=== PATIENT | male | born 1995 | race Caucasian/White ===

== ENCOUNTER 2018-12-04 19:23 | Emergency (ER) | payer OTHER ==
[2018-12-04 19:28] VITALS: BP 144/87
--- NOTE | 2018-12-04 20:02 | XRAY Report ---
Reason: INJURY Procedure Date: 12/04/2018 Accession Number: [id number] / [id number] Procedure: XR - Shoulder 3 View LT CPT Code: FULL RESULT: EXAM: LEFT SHOULDER RADIOGRAPHY EXAM DATE: 12/04/2018 07:37 PM. CLINICAL HISTORY: INJURY. COMPARISON: None. TECHNIQUE: 4 views. FINDINGS: Bones: Inferiorly displaced mid clavicle fracture, with 1.2 cm of inferior displacement. Joints: The glenohumeral and acromioclavicular joints are preserved. Soft tissues: The partially imaged lung is unremarkable. IMPRESSION: Mid clavicle fracture. RADIA
--- NOTE | 2018-12-04 20:56 | ED Physician Documentation ---
PD HPI UPPER EXT INJURY - Stated complaint Stated Complaint: LT SHOULDER PX - Chief complaint Chief Complaint: Ext Problem - History obtained from History obtained from: Patient - History of Present Illness Location: Left (Fell on his left shoulder while snowboarding earlier today. No pain at rest, only hurts with motion. Declines pain medication. He is active duty [employer].) Review of Systems Constitutional: reports: Reviewed and negative Nose: reports: Reviewed and negative Throat: reports: Reviewed and negative PD PAST MEDICAL HISTORY - Past Medical History Past Medical History: No - Past Surgical History Past Surgical History: No - Present Medications Home Medications: Ambulatory Orders Medication Instructions Recorded Confirmed No Known Home Medications 12/04/18 12/04/18 - Allergies Allergies/Adverse Reactions: Allergies Allergy/AdvReac Type Severity Reaction Status Date / Time No Known Drug Allergies Allergy Verified 12/04/18 19:28 - Social History Does the pt smoke?: No Smoking Status: Never smoker Does the pt drink ETOH?: Yes Does the pt have substance abuse?: No - Immunizations Immunizations are current?: Yes - POLST Patient has POLST: No PD ED PE NORMAL - Vitals Vital signs reviewed: Yes - General General: Alert and oriented X 3, No acute distress - Neck Neck: Supple, no meningeal sign, No bony TTP - Extremities Extremities: Other (Tender to the mid clavicle with deformity, limited range of motion of the shoulder. Neurovascular intact in the left upper extremity.) - Neuro Neuro: Alert and oriented X 3, Normal speech Results - Vitals Vitals: Vital Signs - 24 hr 12/04/18 19:25 Temperature 36.8 C Heart Rate 86 Respiratory 18 Rate Blood Pressure 144/87 H O2 Saturation 99 Oxygen O2 Source Room air - Rads (name of study) l SHOULDER Radiology: EMP read contemporaneously PD MEDICAL DECISION MAKING - ED course ED course: 23-year-old gentleman with isolated left mid clavicular fracture. Declined pain medication. Placed in a sling. [place] Departure - Departure Disposition: 01 Home, Self Care Clinical Impression: Fracture of clavicular shaft, left, closed Qualifiers: Encounter type: initial encounter Fracture alignment: displaced Qualified Code(s): S42.022A - Displaced fracture of shaft of left clavicle, initial encounter for closed fracture Condition: Good Record reviewed to determine appropriate education?: Yes Instructions: ED Fx Clavicle Comments: Call the [facility] tomorrow to arrange an appointment with the orthopedic clinic. Take the CD of the x-ray with you. Keep the sling on until then. Forms: Activity restrictions
== END 2018-12-04 21:03 | disposition home or self-care (01) ==
LOC: ED 19:23
DX: S42.022A Displaced fracture of shaft of left clavicle, initial encounter for closed fracture (principal); V00.311A Fall from snowboard, initial encounter; Y93.23 Activity, snow (alpine) (downhill) skiing, snowboarding, sledding, tobogganing and snow tubing
CPT/HCPCS: 99283

== ENCOUNTER 2018-12-09 09:27 | Day surgery (SDC) | payer OTHER ==
[2018-12-09] MEDS ORDERED: cefTRIAXone 2 GM VIAL ONE (09:50)
[2018-12-09] MEDS ORDERED: LACTATED RINGERS 1,000 ML IV ONE ×2 (10:00→14:25)
[2018-12-09] MEDS ORDERED: BUPIVACAINE 0.25%-EPI 1:200000 PF 30 ML VIAL ONE (10:12)
--- NOTE | 2018-12-09 10:51 | ANESTHESIA ---
Pre-Anesthesia VS, & Labs - Diagnosis left clavicle fracture - Procedure Open reduction internal fixation right clavicle Vital Signs: Temp Pulse Resp BP Pulse Ox 36.5 C 67 16 134/79 H 100 12/09/18 09:40 12/09/18 09:40 12/09/18 09:40 12/09/18 09:40 12/09/18 09:40 Height 6 ft Weight (kg) 81.65 kg Body Mass Index 24.4 - NPO >8 hours Home Medications and Allergies No Known Home Medications 12/04/18 Allergies/Adverse Reactions: Allergies Allergy/AdvReac Type Severity Reaction Status Date / Time No Known Drug Allergies Allergy Verified 12/06/18 13:21 Anes History & Medical History - Anesthetic History Anesthesia Complications: reports: No previous complications Family history of Anesthesia Complications: Denies Family history of Malignant Hyperthermia: Denies - Medical History Cardiovascular: reports: None Pulmonary: reports: None Gastrointestinal: reports: None Urinary: reports: None Musculoskeletal: reports: Other Endocrine/Autoimmune: reports: None Skin: reports: None Smoking Status: Never smoker Exam General: Alert Dental: WNL Mouth Opening: Greater than 4 Fingerbreadths Neck Mobility: Normal Mallampati classification: II Thyromental Distance: greater than 6 cm Respiratory: Lungs clear Cardiovascular: Regular rate Plan Anesthesia Type: General Consent for Procedure(s) Verified and Reviewed: Yes Code Status: Attempt Resuscitation ASA classification: 1-Healthy patient Is this case an emergency?: No
[2018-12-09] MEDS ORDERED: CELECOXIB 100 MG CAPSULE PO ONE (11:11)
[2018-12-09] MEDS ORDERED: GABAPENTIN 400 MG CAPSULE ONE (11:11)
[2018-12-09] MEDS ORDERED: ACETAMINOPHEN 1,000 MG/100 ML 100 ML IV ONE (11:11)
[2018-12-09] MEDS ORDERED: ROCURONIUM 50 MG/5 ML VIAL IVP ONE (12:00)
[2018-12-09] MEDS ORDERED: METOCLOPRAMIDE 10 MG/2 ML VIAL IVP ONE (12:00)
[2018-12-09] MEDS ORDERED: fentaNYL 100 MCG/2 ML VIAL IVP ONE (12:00)
[2018-12-09] MEDS ORDERED: raNITIdine INJ 25 MG/ML VIAL IV ONE (12:00)
[2018-12-09] MEDS ORDERED: MIDAZOLAM 2 MG/2 ML VIAL IVP ONE (12:00)
[2018-12-09] MEDS ORDERED: DEXAMETHASONE 4 MG/ML VIAL IVP ONE (12:00)
[2018-12-09] MEDS ORDERED: PROPOFOL 200 MG/20 ML VIAL IVP ONE (12:00)
[2018-12-09] MEDS ORDERED: LIDOCAINE-MPF 2% 5 ML VIAL IM ONE (12:00)
[2018-12-09] MEDS ORDERED: ONDANSETRON 4 MG/2 ML VIAL IVP ONE (12:00)
[2018-12-09] MEDS ORDERED: BUPIVACAINE 0.25%-EPI 1:200000 PF 30 ML VIAL SUBQ ONE ×2 (12:55)
[2018-12-09] MEDS ORDERED: ONDANSETRON 4 MG/2 ML VIAL IVP PRN (14:15)
[2018-12-09] MEDS ORDERED: oxyCODONE 5 MG TABLET PO PRN (14:15)
--- NOTE | 2018-12-09 14:24 | OPERATIVE REPORT ---
Operative Report - Other Other Information/Narrative: Date of Surgery: 09 December 2018 Pre-Op Diagnosis: Left midshaft clavicle fracture Procedure: Open reduction internal fixation left midshaft clavicle fracture Postop Diagnosis: Same Primary Surgeon: Bairon Maravilla Secondary Surgeon: Tenzin Burkett Complications: None EBL: 50 cc Implants: Arthrex superior clavicle plate with 7 screws Postoperative Protocol: Full passive range of motion until 4 weeks. Full active range of motion until 12 weeks. Begin strengthening at that time. X-ray should be obtained at his first postoperative visit, 6 weeks postoperative visit, and 3-month postoperative visit. Indication For Surgery: 23-year-old male sustained a left clavicle fracture when he was snowboarding on 03 November. It was closed and had no neurovascular injury. I discussed with him treatment options to include closed management with the potential for malunion, nonunion, need for further surgery to include malunion takedown and fixation. I quoted him a 15 rate of this complication. I also discussed the risks and benefits of surgery to include symptomatic implants, numb patches on the chest, and neurovascular injury. Despite these risks he has a strong desire to move forward with surgery because he will be leaving the [place] in 4 months and he does not want to need surgery around that time if he was developing a nonunion. The risks, benefits, and alternatives were discussed. Risks include pain, bleeding, infection, damage to nearby structures, numbness, lack of symptom relief, implant complications, nonunion, need for further surgery, DVT, PE, stroke, and . Written consent was obtained. Procedure in Detail: The patient was met in the pre-operative hold area on the day of the procedure. The operative extremity was signed and questions were answered. The patient was brought to the operating room and a general anesthetic was administered. Supine position was used and all bony prominences were padded. A single blanket was placed between the scapula. Standard prepping and draping was performed. A time out confirmed patient identification, laterality, procedure, allergies, antibiotics, and images. A 10 cm incision was placed anterior to the clavicle and full-thickness skin flaps were obtained. Hemostasis was obtained with electrocautery. Scissor dissection was carried down to the fascia and no branches of the supraclavicular nerves were identified. The fascia directly superior to the clavicle was opened and the bone was cleared from fascial attachments. The fracture site was cleared from all blocks to reduction and a reduction was performed and a pin was placed. Satisfied with the reduction and plate was applied to the superior point and fixed to the lateral aspect of the fracture. This created a crotch to compress into and a dynamic compression screw was placed. Satisfied with this I then placed a lag technique screw through 1 of the holes in the plates. I then placed the additional plate screws and found the wall to have excellent fixation with excellent purchase. While drilling all screws I took care to not plunge with the drill bit. Orthogonal x-rays were then taken to confirm the reduction and that all implants were safe. The wound was then irrigated copiously and a layered closure was performed with 0 Vicryl into the fascia and the muscular layer creating a thick durable closure over the plate. The platysmal and subdermal layer was closed with 2-0 Vicryl in the dermis was closed with running Monocryl. Steri-Strips were applied and 12 cc of quarter percent Marcaine plain were placed about the wound. A sterile dressing was applied, and a sling was placed. He was awakened and transferred to the recovery room.
--- NOTE | 2018-12-09 14:44 | XRAY Report ---
Reason: Left clavical Fx Procedure Date: 12/09/2018 Accession Number: [id number] / [id number] Procedure: XR - Clavicle LT CPT Code: FULL RESULT: EXAM: LEFT CLAVICLE RADIOGRAPHY EXAM DATE: 12/09/2018 01:31 PM. CLINICAL HISTORY: Left clavicle Fx. COMPARISON: None. TECHNIQUE: 3 Views. FINDINGS: Bones: Intraoperative or perioperative images are submitted. There is satisfactory alignment of the internally fixated left mid clavicle fracture. No evidence of hardware failure. Joints: The acromioclavicular and glenohumeral joints are normal. No subluxation. The sternoclavicular joint is not optimally evaluated. Soft Tissues: Normal. No soft tissue swelling. IMPRESSION: Satisfactory postoperative appearance of the left clavicle. RADIA
--- NOTE | 2018-12-09 15:06 | XRAY Report ---
Reason: fx left clavical Procedure Date: 12/09/2018 Accession Number: [id number] / [id number] Procedure: FL - OR C-Arm Procedure CPT Code: FULL RESULT: EXAM: FLUOROSCOPIC GUIDANCE EXAM DATE: 12/09/2018 01:40 PM. CLINICAL HISTORY: ORIF left clavicle fracture. COMPARISON: None. FINDINGS: See operative report findings by surgeon. IMPRESSION: Fluoroscopic guidance provided for ORIF left clavicle fracture. Total fluoroscopy time: 0.3 minutes. Number of images: 3. RADIA
[2018-12-09 15:18] VITALS: BP 158/92
[2018-12-09] MEDS ORDERED: oxyCODONE 5 MG TABLET ONE (15:21)
== END 2018-12-09 09:28 | disposition home or self-care (01) ==
LOC: SDS 09:27
PROVIDERS: ATTEND Orthopaedic Surgery
PROC: 0PSB04Z Reposition Left Clavicle with Internal Fixation Device, Open Approach (ICD-10-PCS; principal; 2018-12-09 11:00)
DX: S42.022A Displaced fracture of shaft of left clavicle, initial encounter for closed fracture (principal); Y93.23 Activity, snow (alpine) (downhill) skiing, snowboarding, sledding, tobogganing and snow tubing; Y92.828 Other wilderness area as the place of occurrence of the external cause; Y99.8 Other external cause status
CPT/HCPCS: 23515; 73000; A9270; C1713; J0131; J2765; J7120